=== PATIENT | female | born 2000 | race Caucasian/White ===

== ENCOUNTER 2020-06-09 21:57 | Emergency (ER) | payer MEDICAID ==
[~2020-06-09] VITALS: Ht 162.6 cm; Wt 54.4 kg
--- NOTE | 2020-06-09 22:10 | NUR ---
MULTIPLE BRUISES ON UPPER AND LOWER EXTREMITIES NOTED.
--- NOTE | 2020-06-09 22:10 | NUR ---
PT BIBEMS & [employer] FROM [facility] C/O BIZARRE BEHAVIOR. PER [employer] REPORT, PT WALKED IN TO [facility] AND THREATENED TO BLOW UP THE STORE. PT AGITATED, VERBALLY AND PHYSICALLY AGGRESSIVE UPON ARRIVAL. AWARE. PT CONNECTED TO THE MONITOR AND POX, RESPIRATIONS EVEN AND UNLABORED ON RA W/ AND NOTED. PT CHANGED TO GOWN, BELONGINGS PLACED TO LOCKER. SITTER AT BEDSIDE FOR SAFETY.
[2020-06-09] MEDS ORDERED: LORAZEPAM INJ 2 MG/ML VIAL ONE (22:13)
[2020-06-09] MEDS ORDERED: diphenhydrAMINE HCL 50 MG/ML VIAL ONE (22:13)
[2020-06-09] MEDS ORDERED: HALOPERIDOL LACTATE INJ 5 MG/ML VIAL ONE (22:13)
[2020-06-09] MEDS ORDERED: diphenhydrAMINE HCL 50 MG/ML VIAL IM ONE (22:30)
[2020-06-09] MEDS ORDERED: LORAZEPAM INJ 2 MG/ML VIAL IV ONE (22:30)
[2020-06-09] MEDS ORDERED: HALOPERIDOL LACTATE INJ 5 MG/ML VIAL IM ONE (22:30)
[2020-06-09] MEDS ORDERED: OLANZAPINE 10 MG VIAL IM ONE (23:30)
--- NOTE | 2020-06-10 00:22 | NUR ---
PT RESTING COMFORTABLY IN BED. VSS. NO ACUTE DISTRESS NOTED. PT CONNECTED TO THE LADIES ATTENDANT AND POX. SITTER AT BEDSIDE FOR SAFETY
--- NOTE | 2020-06-10 01:09 | NUR ---
BLOOD COLLECTED AND SENT TO LAB
[2020-06-10] MEDS ORDERED: OLANZAPINE 10 MG VIAL IM ONE (01:11)
[2020-06-10 01:26] LABS: BASOPHILS % (AUTO) 0.4 % (0.0-2.0); EOSINOPHILS % (AUTO) 0.1 % (0.0-6.0); HEMATOCRIT 43 % (33-45); HEMOGLOBIN 14.6 g/dL (11.5-14.8); LYMPHOCYTES % (AUTO) 16.8 % (20.0-44.0); MEAN CORPUSCULAR HGB CONC 34 g/dl (31.0-36.0); MEAN CORPUSCULAR VOLUME 99 fL (82-100); MONOCYTES # (AUTO) 0.9 /CMM (0.1-1.30); MONOCYTES % (AUTO) 7.4 % (2.0-12.0); NEUTROPHILS % (AUTO) 75.3 % (43.0-81.0); PLATELET COUNT (AUTO) 225 /CMM (150-450); RED BLOOD CELL COUNT(AUTO) 4.36 MIL/uL (4.0-5.2); WHITE BLOOD COUNT (AUTO) 11.9 K/uL (4.3-11.0)
[2020-06-10 01:31] LABS: CALCIUM, SERUM 9.1 mg/dL (8.5-10.1); CARBON DIOXIDE 25 mmol/L (21-32); CHLORIDE 103 mmol/L (98-107); CREATININE 0.9 mg/dL (0.6-1.3); GLUCOSE 81 mg/dL (74-106); POTASSIUM 3.4 mmol/L (3.5-5.1); SODIUM SERUM 140 mmol/L (136-145); UREA NITROGEN, BLOOD 14 mg/dL (7-18)
[2020-06-10 01:45] LABS: ALANINE AMINOTRANSFERASE 23 U/L (12-78); ALBUMIN 4.6 g/dL (3.4-5.0); ALKALINE PHOSPHATASE 85 U/L (46-116); ASPARTATE AMINOTRANSFERASE 30 U/L (15-37); BILIRUBIN,DIRECT 0.2 mg/dL (0.0-0.2); BILIRUBIN,TOTAL 0.5 mg/dL (0.2-1.0); TOTAL PROTEIN, SERUM 8.2 g/dL (6.4-8.2)
[2020-06-10 01:50] LABS: ACETAMINOPHEN 0 ug/ml (10-30); ALCOHOL, BLOOD < 3 mg/dL (0-0)
--- NOTE | 2020-06-10 05:48 | NUR ---
PT RESTING COMFORTABLY IN BED. NAD NOTED. SITTER AT BEDSIDE FOR SAFETY. CALL LIGHT WITHIN REACH
--- NOTE | 2020-06-10 06:27 | NUR ---
Mary dumas in ED - 06/10/20 at 0627 by SOSA Patient discharged to home in stable condition. Written and verbal after care instructions given. Patient verbalizes understanding of instruction.
--- NOTE | 2020-06-10 06:30 | NUR ---
PT STILL UNABLE TO PROVIDE URINE AT THIS TIME. MD PEREZ
--- NOTE | 2020-06-10 07:41 | NUR ---
URINE COLLECTED AND SENT TO LAB
--- NOTE | 2020-06-10 07:46 | NUR ---
SITTER AT BEDSIDE FOR SAFETY
[2020-06-10 08:18] LABS: APPEARANCE,URINE CLEAR (CLEAR); BILIRUBIN,URINE SMALL (NEGATIVE); BLOOD, URINE TRACE-INTA Ery/uL (NEGATIVE); COLOR,URINE YELLOW (YELLOW); KETONES,URINE TRACE (NEGATIVE); LEUKOCYTE ESTERASE ,URINE NEGATIVE (NEGATIVE); NITRITE, URINE NEGATIVE (NEGATIVE); PH,URINE 5.5 (5.0-8.0); PROTEIN,URINE TRACE mg/dl (NEGATIVE); UGLUCOSE NEGATIVE (NEGATIVE); UROBILINOGEN,URINE 0.2 EU/dL (0.2)
--- NOTE | 2020-06-10 08:42 | NUR ---
OFFERED FOOD TRAY, PATIENT REFUSED.
[2020-06-10 09:45] LABS: BACTERIA,URINE Rare /HPF (None Seen); RBC,URINE 0-2 /HPF (0-2); SQUAMOUS EPITHELIAL CELL,UR Few /HPF (None Seen); WBC,URINE 0-2 /HPF (0-3)
--- NOTE | 2020-06-10 09:49 | NUR ---
CALLED [facility]. ETA 60 MIN
--- NOTE | 2020-06-10 11:06 | NUR ---
cook pressure at bedside for eval
--- NOTE | 2020-06-10 12:36 | NUR ---
PER FREIGHT DELIVERY DRIVER SENIA, PATIENT IS STILL NOT ABLE TO BE SPOKEN TO. NOT ANSWERING QUESTIONS. FREIGHT DELIVERY DRIVER WILL BE BACK ONCE PATIENT IS OK TO BE SPOKEN WITH.
--- NOTE | 2020-06-10 13:47 | NUR ---
OFFERED FOOD TRAY, PATIENT REFUSED. TUCKED HERSELF IN BLANKET.
--- NOTE | 2020-06-10 14:22 | NUR ---
PATIENT IN BED ASLEEP, EASILY AROUSABLE BY VOICE. PATIENT DOES NOT ANSWER QUESTIONS. WILL CONTINUE TO MONITOR.
--- NOTE | 2020-06-10 18:46 | NUR ---
PATIENT IN BED ASLEEP, EASILY AROUSABLE BY VOICE. PATIENT DOES NOT ANSWER QUESTIONS. WILL CONTINUE TO MONITOR.
--- NOTE | 2020-06-10 19:50 | NUR ---
PT REFUSING TO ANSWER QUESTIONS. VSS. NO ACUTE DISTRESS NOTED. PT CONNECTED TO THE MONITOR AND POX. 1:1 SITTER AT BEDSIDE FOR SAFETY. WILL CONTINUE TO MONITOR
--- NOTE | 2020-06-10 22:31 | NUR ---
Patient is resting comfortably in bed with eyes closed. Easily aroused. VSS
--- NOTE | 2020-06-11 00:25 | NUR ---
Mary dumas in EDM - 06/11/20 at 0127 by ALFONSO PT ACTING BIZZARRE. PT VERBALLY ABUSIVE TO STAFF. MADE AWARE
--- NOTE | 2020-06-11 00:37 | NUR ---
Mary dumas in ED - 06/11/20 at 0127 by ALFONSO PT MEDICATED ORDERED
--- NOTE | 2020-06-11 01:27 | NUR ---
PT OFFERED FOOD TRAY
--- NOTE | 2020-06-11 05:04 | NUR ---
CALLED JAYDE, CRISIS TEAM INFRASTRUCTURE TECH
--- NOTE | 2020-06-11 05:15 | NUR ---
PATIENT IS SLEEPING. BREATHING EVENLY AND UNLABORED ON ROOM AIR. EASILY AROUSABLE THROUGH VERBAL STIMULI. CONNECTED TO THE MONITOR. SITTER AT BEDSIDE. SIDE RAILS UP FOR SAFETY. BED IN THE LOWEST POSITION.
--- NOTE | 2020-06-11 06:17 | NUR ---
PT RESTING COMFORTABLY IN BED. PT EASILY AWAKEN BY NAME. VSS. NO ACUTE DISTRESS NOTED. SITTER AT BEDSIDE FOR SAFETY
--- NOTE | 2020-06-11 07:32 | NUR ---
PATIENT ASLEEP, EASILY AROUSABLE BY VOICE. HOOKED TO MONITOR, WILL CONTINUE TO MONITOR ACCORDINGLY. KEPT SAFE, WARM AND COMFORTABLE. SITTER AT BEDSIDE FOR SAFETY
--- NOTE | 2020-06-11 09:57 | NUR ---
OFFERED FOOD, PATIENT REFUSED. PLACED FOOD AT BEDSIDE
--- NOTE | 2020-06-11 10:32 | NUR ---
STORE STOCK ASSOCIATE SENIA AT BEDSIDE
--- NOTE | 2020-06-11 12:30 | NUR ---
PATIET AWAKE IN BED, HOOKED TO MONITOR, WILL CONTINUE TO MONITOR ACCORDINGLY. SITTER AT BEDSIDE
--- NOTE | 2020-06-11 12:35 | NUR ---
COUSIN: JANINA LOVELL: [phone]
--- NOTE | 2020-06-11 13:43 | NUR ---
FOOD TRAY PROVIDED, PATIENT TOLERATED PO WELL.
--- NOTE | 2020-06-11 15:23 | NUR ---
PATIENT IN BED AWAKE, SPEAKING TO FAMILY THROUGH HER CELLULAR PHONE. HOOKED TO MONITOR. WILL CONTINUE TO MONITOR ACCORDINGLY. KEPT SAFE. SITTER AT BEDSIDE
--- NOTE | 2020-06-11 17:39 | NUR ---
PATIENT SITTING AT THE EDGE OF BED, SPEAKING TO FAMILY THROUGH HER CELLULAR PHONE. HOOKED TO MONITOR. WILL CONTINUE TO MONITOR ACCORDINGLY. KEPT SAFE AND COMFORTABLE. SITTER AT BEDSIDE
--- NOTE | 2020-06-11 18:51 | NUR ---
PER SEAN LÓPEZ INTAKE, ARRANGING FOR PATIENT TO BE TRANSFERRED TO [facility], AWAITING FOR CALL BACK FROM [facility] AFTER 193 DUE TO HOSPITAL SHORT STAFFED
--- NOTE | 2020-06-11 19:18 | NUR ---
[facility] [phone]
--- NOTE | 2020-06-11 19:58 | NUR ---
PT RESTING COMFORTABLY IN BED. VITAL SIGNS STABLE. SITTER AT BEDSIDE, WILL CONTINUE TO MONITOR
--- NOTE | 2020-06-11 21:07 | NUR ---
JEN VIDAL FAMILY FRIEND THAT IS WILLING TO HELP HER GO BACK TO [facility].
--- NOTE | 2020-06-11 23:35 | NUR ---
CALLED [facility] INTAKE REGARDING TRANSFER UPDATE SPOKE TO DARIAN CARDOZA WILL F/U AND WILL CALL ME BACK.
--- NOTE | 2020-06-12 00:56 | NUR ---
PT ACCEPTED AT [facility] PER INTAKE DARIAN PT WILL GO TO ROOM 147-A ACCEPTING MD CLAYTON/KENAN PHONE # FOR REPORT
--- NOTE | 2020-06-12 01:04 | NUR ---
TRANSPORT ([facility]) ETA 0300.
--- NOTE | 2020-06-12 01:49 | NUR ---
Report given to DOUG Fink from [facility].
--- NOTE | 2020-06-12 03:20 | NUR ---
REPORT GIVEN TO [facility] FOR TRANSPORTATION [facility]
[2020-06-12 03:25] VITALS: BP 108/61
== END 2020-06-12 03:27 ==
LOC: ER 22:04
DX: F15.159 Other stimulant abuse with stimulant-induced psychotic disorder, unspecified (principal); R03.0 Elevated blood-pressure reading, without diagnosis of hypertension; Z20.828 Contact with and (suspected) exposure to other viral communicable diseases
CPT/HCPCS: 36415 ×2; 80048; 80076; 80299; 80307 ×2; 80320; 81001; 84702; 85025; 87426; 96372 ×2; 99285; C9803; J1200; J1630; J2060; J3490; 81000-TC; G0480